=== PATIENT | male | born 1975 | race Caucasian/White ===

== ENCOUNTER 2017-07-05 19:33 | Observation (INO) | payer MEDICAID, OTHER ==
[~2017-07-05] VITALS: Ht 175.3 cm; Wt 111.3 kg
[~2017-07-05 19:33] MED LIST: AMLO5TAB2 PO; FOLI-17 PO; LAMO100T5 PO; METO25TA35 PO; QUET200T4 PO; THIA100T6 PO
[2017-07-05 20:50] LABS: HEMATOCRIT 46.7 % (39.2-51.8); WHITE BLOOD COUNT 8.2 x10^3/uL (3.4-10)
[2017-07-05 21:00] LABS: BLOOD UREA NITROGEN 16 mg/dL (7-18)
[2017-07-05] MEDS ORDERED: LORazepam 1MG TABLET PO ONE (21:00)
[2017-07-05 21:02] LABS: ASPARTATE AMINO TRANSFERASE 124 U/L (15-37)
[2017-07-05 21:03] LABS: ACETAMINOPHEN < 2 mcg/mL (10-30)
[2017-07-05 21:16] LABS: DAU SCREEN DISCLAIMER
[2017-07-05] MEDS ORDERED: LORazepam 1MG TABLET ONE (21:27)
[2017-07-05] MEDS ORDERED: QUETIAPINE 25MG TABLET PO ONE (22:00)
[2017-07-05] MEDS ORDERED: ACETAMINOPHEN 325 MG TABLET PO PRN (22:30)
[2017-07-05] MEDS ORDERED: TEMAZEPAM 15 MG CAPSULE PO PRN (22:30)
[2017-07-05] MEDS ORDERED: LORazepam 2 MG/ML, 1ML IM PRN (22:30)
[2017-07-05] MEDS ORDERED: HALOPERIDOL 5 MG/ML IM PRN (22:30)
[2017-07-05] MEDS ORDERED: BENZTROPINE 1 MG TABLET PO PRN (22:30)
[2017-07-05 23:22] VITALS: BP 149/83
[2017-07-06 08:20] VITALS: BP 111/70
[2017-07-06] MEDS: LORazepam 1MG TABLET PO PRN (17:22)
[2017-07-06] MEDS: QUETIAPINE 200 MG TABLET PO SCH (20:23)
[2017-07-06] MEDS: LAMOTRIGINE 100 MG TABLET PO SCH (20:23)
[2017-07-06 20:37] VITALS: BP 143/87
[2017-07-07 07:43] VITALS: BP 135/95
[2017-07-07] MEDS: LAMOTRIGINE 100 MG TABLET PO SCH ×2 (09:04→20:48)
[2017-07-07 10:21] LABS: BLOOD UREA NITROGEN 14 mg/dL (7-18)
[2017-07-07] MEDS: LORazepam 1MG TABLET PO PRN (12:55)
[2017-07-07 19:49] VITALS: BP 137/85
[2017-07-07] MEDS: QUETIAPINE 200 MG TABLET PO SCH (20:48)
[2017-07-08 08:00] VITALS: BP 98/68
[2017-07-08] MEDS: LAMOTRIGINE 100 MG TABLET PO SCH ×2 (08:36→20:16)
[2017-07-08] MEDS: LORazepam 1MG TABLET PO PRN (12:30)
[2017-07-08 19:43] VITALS: BP 141/86
[2017-07-08] MEDS: QUETIAPINE 200 MG TABLET PO SCH (20:16)
== END 2017-07-09 01:30 ==
LOC: ED 22:13 → EDIP 22:15 → 3E 23:28
PROVIDERS: ADMIT Internal Medicine; ATTEND Internal Medicine
DX: F25.9 Schizoaffective disorder, unspecified (principal); E66.9 Obesity, unspecified; F31.9 Bipolar disorder, unspecified; F32.3 Major depressive disorder, single episode, severe with psychotic features; F41.9 Anxiety disorder, unspecified; R45.851 Suicidal ideations; Z91.14 Patient's other noncompliance with medication regimen; Z72.0 Tobacco use
CPT/HCPCS: 36415; 80048; 80053; 80307; 80329; 85025; 99285; G0378; G0480